=== PATIENT | male | born 1955 | race Caucasian/White ===

== ENCOUNTER 2018-12-06 22:50 | Inpatient (IN) | payer MEDICARE, OTHER ==
[2018-12-06] MEDS ORDERED: ASPIRIN 325 MG TABLET PO ONE (23:17)
[2018-12-06] MEDS ORDERED: METOPROLOL TARTRATE 5 MG/5 ML VIAL IVPUSH ONE (23:17)
[2018-12-06] MEDS ORDERED: ASPIRIN 325 MG TABLET ONE (23:22)
[2018-12-06] MEDS ORDERED: METOPROLOL TARTRATE 5 MG/5 ML VIAL ONE (23:23)
[2018-12-06 23:31] LABS: BASO % 0.5 % (0-2.0); EOS % 0.8 % (0-4.5); HEMATOCRIT 42.5 % (35.4-49); HEMOGLOBIN 14.9 GM/dL (11.7-16.9); LYMPH % 16.9 % (8-40); MCH 31.3 pg (25.7-33.7); MCHC 34.9 g/dl (32.0-35.9); MEAN CELL VOLUME 89.5 fl (80-96); MEAN PLT VOLUME 8.6 fl (7.5-11.1); NEUT % 75.8 % (42.8-82.8); PLATELET COUNT 256 K/MM3 (134-434); RBC 4.75 M/mm3 (4.00-5.60); RDW 14.8 % (11.9-15.9); WHITE BLOOD COUNT 13.8 K/mm3 (4.0-10.0)
[2018-12-06] MEDS ORDERED: dilTIAZem HCL 125 MG/25 ML - 25 ML VIAL ONE (23:37)
--- NOTE | 2018-12-06 23:37 | PDOC ---
History of Present Illness - General Chief Complaint: Chest Pain Stated Complaint: CHEST PAIN Time Seen by Provider: 12/06/18 23:17 - History of Present Illness Initial Comments: The pt is a 63M w/ a history of HTN, a-fib (coumadin), CAD s/p CABG x4, s/p AICD /PM who presents for evaluation of one hour of chest pain, SOB, MARI, malaise. 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 The pt reports feeling similar symptoms in the past which was related to a dysrhythmia requiring electric cardioversion. Pt states that his defibrillator has not discharged, but wishes it would. Reports it is programmed to override tachy-arrhythmias Endorses nausea Denies vomiting, abdominal pain, diarrhea, fevers, recent illness, or changes in sensation PCP: Dr. Ping Smallwood 12/06/18 23:37 Past History - Past Medical History Allergies/Adverse Reactions: Allergies Allergy/AdvReac Type Severity Reaction Status Date / Time No Known Allergies Allergy Verified 12/06/18 23:59 Home Medications: Ambulatory Orders Atorvastatin Ca [Lipitor] 40 mg PO HS 09/21/12 Carvedilol [Coreg] 25 mg PO BID 01/01/13 Furosemide 40 mg PO DAILY PRN 12/07/18 Oxycodone HCl/Acetaminophen [Percocet 10-325 mg Tablet] 1 each PO BID 12/07/18 Spironolactone 12.5 mg PO DAILY 12/07/18 metFORMIN HCL [Metformin HCl] 500 mg PO BID 12/07/18 oxyCODONE SR [Oxycontin] 20 mg PO BID 12/07/18 Amiodarone HCl [Cordarone -] 400 mg PO DAILY tablet 12/09/18 Enoxaparin [Lovenox -] 80 mg SQ BID disp.syrin 12/09/18 Nicotine Patch [Nicoderm Patch -] 21 mg TD DAILY patch 12/09/18 Sacubitril/Valsartan [Entresto 49 mg-51 mg Tablet] 1 tab PO BID tablet Warfarin Na [Coumadin -] 2 mg PO SuMoWeFrSa@1800 tablet 12/09/18 Warfarin Na [Coumadin -] 4 mg PO TuTh@1800 #0 tablet 12/09/18 Cardiac Disorders: Yes (BYPASS, DEFIB-PACE MAKER) Diabetes: Yes HTN: Yes - Surgical History Cardiac Surgery: Yes (defib, BYPASS) - Immunization History Td Vaccination: No TDAP Vaccination: No Immunization Up to Date: No - Suicide/Smoking/Psychosocial Hx Smoking Status: No Smoking History: Unknown if ever smoked Years of Tobacco Use: 0 Number of Cigarettes Smoked Daily: 0 Cigars Per Day: 0 Drug/Substance Use Hx: No Substance Use Type: None Review of Systems - Review of Systems Able to Perform ROS?: Yes Comments:: GENERAL/CONSTITUTIONAL: No fever or chills. HEAD, EYES, EARS, NOSE AND THROAT: No change in vision or hearing. No sore throat CARDIOVASCULAR: +chest pain and SOB RESPIRATORY: Denies cough, hemoptysis GASTROINTESTINAL: No vomiting, diarrhea or constipation GENITOURINARY: No dysuria, frequency, or change in urination MUSCULOSKELETAL: No joint or muscle swelling or pain. No neck or back pain SKIN: No rash NEUROLOGIC: No vertigo, loss of consciousness, or change in strength/sensation ENDOCRINE: No increased thirst. No abnormal weight change HEMATOLOGIC/LYMPHATIC: No anemia, easy bleeding, or history of blood clots ALLERGIC/IMMUNOLOGIC: No hives or skin allergy Is the patient limited Sami proficient: No *Physical Exam - Vital Signs Last Vital Signs Temp Pulse Resp BP Pulse Ox 98.2 F 147 H 20 143/87 100 12/06/18 22:59 12/06/18 22:59 12/06/18 22:59 12/06/18 22:59 12/06/18 22:59 - Physical Exam Comments: GENERAL: Awake, alert, and oriented to person/place/time, in moderate distress HEAD: No signs of trauma, normocephalic, atraumatic EYES: PERRLA, EOMI, sclera anicteric, conjunctiva clear ENT: Hearing grossly normal, nares patent, oropharynx clear without exudates. Moist mucosa LUNGS: Tachypnic, clear to auscultation bilaterally HEART: Tachycardic w/ regular rhythm, normal S1 and S2, no murmurs appreciated, peripheral pulses normal and equal bilaterally ABDOMEN: Soft, nontender, normoactive bowel sounds. No guarding, no rebound EXTREMITIES: Normal inspection, Normal range of motion, no edema NEUROLOGICAL: Cranial nerves II through XII grossly intact. Normal speech, no focal sensorimotor deficits SKIN: Warm, diaphoretic Moderate Sedation - Procedure Monitoring Vital Signs: Procedure Monitoring Vital Signs Temperature 98.2 F 12/06/18 22:59 Pulse Rate 147 H 12/06/18 22:59 Respiratory Rate 20 12/06/18 22:59 Blood Pressure 143/87 12/06/18 22:59 O2 Sat by Pulse Oximetry (%) 100 12/06/18 22:59 ED Treatment Course - LABORATORY CBC & Chemistry Diagram: 12/08/18 06:00 12/09/18 05:30 - Medications Given in the ED: ED Medications Discontinued Medications Generic Name Dose Route Start Last Admin Trade Name Paul PRN Reason Stop Dose Admin Aspirin 325 mg 12/06/18 23:17 12/06/18 23:28 Asa - PO 12/06/18 23:18 325 mg ONCE ONE Administration Metoprolol Tartrate 5 mg 12/06/18 23:17 12/06/18 23:28 Lopressor Injection - IVPUSH 12/06/18 23:18 5 mg ONCE ONE Administration Medical Decision Making - Medical Decision Making The pt is a 63M w/ a history of AVR, a-fib, HTN who presents for evaluation of chest pain, SOB and was found to be in wide-complex tachycardia Pt given Metoprolol 5mg IVP x1 w/o resolution of arrhythmia Pt started on Cardizem gtt at 5 which was then increased to 10 w/ subsequent resolution of tachy-arrhythmia Initial trop I neg Pt converted to a-fib Case discussed w/ pt's Advertising Rep, Dr. Barbosa ([phone]) 12/07/18 00:13 Pt weaned off of Cardizem gtt, BP and HR improved Pt feels improved No MIGUEL Lytes wnl LFTs wnl BNP elevated Plan for admission Pt discussed w/ Dr. Hardin who accepted for admission [employer] called to come interrogate device *DC/Admit/Observation/Transfer Diagnosis at time of Disposition: Wide-complex tachycardia, Atrial fibrillation, persistent Hypertension Qualifiers: Hypertension type: unspecified Qualified Code(s): I10 - Essential (primary) hypertension - Discharge Dispostion Condition at time of disposition: Good Decision to Admit order: Yes - Referrals - Patient Instructions - Post Discharge Activity
[2018-12-06] MEDS ORDERED: morphine CARPU-JECT 4 MG/1 ML DISP.SYRIN IVPUSH ONE (23:44)
[2018-12-06] MEDS ORDERED: DILTIAZEM INJECTION 125 MG in SODIUM CHLORIDE 100 ML IVPB SCH (23:45)
[2018-12-06] MEDS ORDERED: morphine SULFATE 4 MG/ML VIAL ONE (23:48)
[2018-12-06 23:55] LABS: ALBUMIN 4.3 g/dl (3.4-5.0); ALK PHOS 106 U/L (45-117); ANION GAP 5 MMOL/L (8-16); BILIRUBIN,TOTAL 0.9 mg/dL (0.2-1); BLOOD UREA NITROGEN 15 mg/dL (7-18); CALCIUM 9.6 mg/dL (8.5-10.1); CHLORIDE 103 mmol/L (98-107); CO2 27 mmol/L (21-32); CREATININE 1.2 mg/dL (0.55-1.3); GLUCOSE,RANDOM 186 mg/dL (74-106); N-TERMINAL BNP 1740.9 pg/ml (5-125); POTASSIUM 4.5 mmol/L (3.5-5.1); SGOT/AST 18 U/L (15-37); SGPT/ALT 26 U/L (13-61); SODIUM 135 mmol/L (136-145); TOT PROT 8.2 g/dl (6.4-8.2)
--- NOTE | 2018-12-07 | PDOC ---
Attending Attestation - Resident Resident Name: Rory Jacques - ED Attending Attestation I have performed the following: I have examined & evaluated the patient, The case was reviewed & discussed with the resident, I agree w/resident's findings & plan, Exceptions are as noted - HPI HPI: 12/07/18 00:12 The patient is a 63 year old male, with a significant PMH of hypertension, hyperlipidemia, atrial fibrillation on coumadin, CAD s/p quadruple bypass, AICD/ PM who presents to the emergency department with worsening shortness of breath and palpitations beginning 1 hour prior to arrival. The patient states he feels like his heart is in his head. The patient also endorses chest pain and malaise. The patient states he has not felt his defibrillator go off prior to arrival but he wishes it would. The patient states he follows with deployment technician Dr Barbosa who he visited twice last week for similar sxs. Per telephone conversation with Dr. Barbosa, the patient had his pacemaker interrogated last week which showed 7 runs of nonsustained V-tach but his pacemaker was successfully antitachycardia pacing. He reports increasing the patients carvedilol dose, but the patient was not tolerating it due to lightheadness so he advised the patient to take extra doses of Amiodarone yesterday. Pt denies fevers, chills, abd pain, N/V, focal weakness/numbness. Denies LE edema, calf ttp, recent travel. Allergies: NKA Color Checker: Dr Barbosa - Physicial Exam PE: 12/07/18 00:26 GENERAL: Awake, alert, and fully oriented, appears uncomfortable EYES: PERRLA, EOMI, sclera anicteric, conjunctiva clear ENT: Oropharynx clear without exudates. Moist mucosa NECK: Normal ROM, supple, no lymphadenopathy, JVD, or masses LUNGS: Breath sounds equal, clear to auscultation bilaterally. No wheezes, and no crackles HEART: Tachycardic to 150, normal S1 and S2, no murmurs, rubs or gallops. AICD palpable in left upper chest wall ABDOMEN: Soft, nontender, normoactive bowel sounds. No masses EXTREMITIES: Normal range of motion, no edema. No cords, erythema, or tenderness NEUROLOGICAL: Normal speech, cranial nerves intact, equal strength and sensation SKIN: Warm, Dry, normal turgor, no rashes or lesions noted. - Medical Decision Making 12/06/18 23:40 63yo M hx arrhythmia s/p AICD/PPM, coronary bypass presents to the ED with CP, SOB, found to be in wide complex tachycardia at rate of 145-150. EKG with either Afib/flutter with abherrancy vs slow Vtach BP 120/80 Given pt on BB at home and amiodarone, gave pt metoprolol 5mg with no response Pt started on dilt gtt 5mg/hr 12/06/18 23:50 Remains wide complex tachycardia, rate 150 Dilt gtt increased to 10mg/hr 12/06/18 23:59 Now in Afib, narrow complex rate 70s Rpt EKG with Afib, some conduction delay Initial wide complex tachycardia likely slow VTach 12/07/18 00:22 Labs unremarkable Mg added on Case discussed with Dr. Hardin, pt accepted for admission Dr. Hardin at the bedside
[2018-12-07 00:03] LABS: INR 1.67 (0.83-1.09); PROTHROMBIN TIME (PATIENT) 19.8 SEC (9.7-13.0)
[2018-12-07 00:06] LABS: ACTIVATED PTT 35.2 SECONDS (25.2-36.5)
[2018-12-07 00:56] LABS: MAGNESIUM 1.9 mg/dL (1.8-2.4)
[2018-12-07] MEDS: NICOTINE 14 MG/24 HOURS TOPICAL PATCH TD SCH ×2 (04:16→11:06)
[2018-12-07] MEDS: oxyCODONE HCL 20 MG SUSTAINED ACTING TABLET PO SCH ×3 (04:16→22:20)
[2018-12-07 04:45] VITALS: BMI 24.5
--- NOTE | 2018-12-07 05:45 | PN ---
Teaching Attending Note Name of Resident: Sterling Almanza ATTENDING PHYSICIAN STATEMENT I saw and evaluated the patient. I reviewed the resident's note and discussed the case with the resident. I agree with the resident's findings and plan as documented. SUBJECTIVE: OBJECTIVE: ASSESSMENT AND PLAN:
--- NOTE | 2018-12-07 05:52 | HP ---
Admitting History and Physical - Admission Chief Complaint: light headed and chest discomfort History of Present Illness: this is a 63 y./o male patient with hx of CAD s/p quadruple CABG, stent, HFrEF with dual lead ICD (medtronic), HTN, DL and atrial fibrillation presented after the patient felt that his heart was racing, he became short of breath and had mild chest discomfort. According to the patient he was recently at his wash operator whom he recommended to have his carvediolol increased to 25mg, increased the dose of amiodarone. patient has not been shocked by this device however he was shocked with the older device prior to 2014, he denied any LOC. History Source: Patient, Family Member - Smoking History Smoking history: Unknown if ever smoked Aproximately how many cigarettes per day: 0 Home Medications - Allergies Allergies/Adverse Reactions: Allergies Allergy/AdvReac Type Severity Reaction Status Date / Time No Known Allergies Allergy Verified 12/06/18 23:59 - Home Medications Home Medications: Ambulatory Orders Amiodarone HCl [CORDARONE] 200 mg PO DAILY 09/21/12 Atorvastatin Ca [Lipitor (Restricted To Cardiology)] 40 mg PO HS 09/21/12 Carvedilol [Coreg] 25 mg PO BID 01/01/13 Furosemide 40 mg PO DAILY PRN 12/07/18 Losartan Potassium 100 mg PO DAILY 12/07/18 Oxycodone HCl/Acetaminophen [Percocet 10-325 mg Tablet] 1 each PO BID 12/07/18 Spironolactone 12.5 mg PO DAILY 12/07/18 Warfarin Na [Coumadin] 2 mg PO UTDICT 12/07/18 Warfarin Sodium 4 mg PO UTDICT 12/07/18 metFORMIN HCL [Metformin HCl] 500 mg PO BID 12/07/18 oxyCODONE SR [Oxycontin] 20 mg PO BID 12/07/18 Review of Systems - Review of Systems Constitutional: reports: No Symptoms Eyes: reports: No Symptoms HENT: reports: No Symptoms Neck: reports: No Symptoms Cardiovascular: reports: Shortness of Breath Respiratory: reports: No Symptoms Physical Examination Vital Signs: Vital Signs Temperature 97.6 F 12/07/18 03:00 Pulse Rate 58 L 12/07/18 03:00 Respiratory Rate 20 12/07/18 03:00 Blood Pressure 129/65 12/07/18 03:00 O2 Sat by Pulse Oximetry (%) 98 12/07/18 03:00 Constitutional: Yes: Well Nourished, No Distress, Calm Eyes: Yes: WNL, Conjunctiva Clear, EOM Intact HENT: Yes: WNL, Atraumatic, Normocephalic Neck: Yes: WNL, Supple, Trachea Midline Cardiovascular: Yes: WNL, Regular Rate and Rhythm, S1, S2 Respiratory: Yes: WNL, Regular, CTA Bilaterally Gastrointestinal: Yes: WNL, Normal Bowel Sounds, Soft Musculoskeletal: Yes: WNL, Muscle Weakness Extremities: Yes: WNL Edema: No Integumentary: Yes: WNL Labs: CBC, BMP 12/06/18 23:03 12/06/18 23:03 Imaging - Results Chest X-ray: Image Reviewed X-ray: Image Reviewed EKG: Image Reviewed Problem List - Problems (1) Atrial fibrillation, persistent Code(s): I48.1 - PERSISTENT ATRIAL FIBRILLATION (2) Persistent atrial fibrillation with RVR Assessment/Plan: rate controlled c/w warfarin repeat INR c/w carvidilol 25m twice a day c/w amiodarone 200mg tele monitor Code(s): I48.1 - PERSISTENT ATRIAL FIBRILLATION (3) HTN (hypertension), benign Assessment/Plan: c/w home medication Code(s): I10 - ESSENTIAL (PRIMARY) HYPERTENSION (4) Dyslipidemia (high LDL; low HDL) Assessment/Plan: c/w statin Code(s): E78.5 - HYPERLIPIDEMIA, UNSPECIFIED (5) Wide-complex tachycardia Assessment/Plan: patient presented to the hospital with wide complext tachycardia, terminated with diltiazem possible aberrant conduction atrial fibrillation with RVR vs VT based on the patient history plan: admit to TELE c/w carvidilol c/w amiodarone cardiology consult echocardiogram device interrogation - [employer] was notified Code(s): I47.2 - VENTRICULAR TACHYCARDIA (6) Diabetes type 2, controlled Assessment/Plan: insulin sliding scale diabetic diet hold metformin Code(s): E11.9 - TYPE 2 DIABETES MELLITUS WITHOUT COMPLICATIONS Qualifiers: Diabetes mellitus cloth napping supervisor insulin use: without cloth napping supervisor use Diabetes mellitus complication status: with circulatory complication
[2018-12-07] MEDS ORDERED: FUROSEMIDE 40 MG TABLET (FP) PO PRN (06:03)
[2018-12-07] MEDS: INSULIN SLIDING SCALE (NOVOLOG) 1 VIAL SQ SCH ×2 (06:52→17:48)
[2018-12-07] MEDS ORDERED: FLU VACCINE QUAD 60 MCG/0.5 ML (MDV 18-19) IM ONE (09:00)
[2018-12-07] MEDS ORDERED: LOSARTAN POTASSIUM 50 MG TABLET (FP) PO SCH (10:00)
[2018-12-07] MEDS ORDERED: AMIODARONE HCL 200 MG TABLET (FP) PO SCH (10:00)
[2018-12-07] MEDS: SPIRONOLACTONE 25 MG TABLET (FP) PO SCH (11:01)
[2018-12-07] MEDS: CARVEDILOL 25 MG TABLET (FP) PO SCH ×2 (11:02→22:21)
[2018-12-07] MEDS: AMIODARONE HCL 200 MG TABLET (FP) PO SCH (11:04)
--- NOTE | 2018-12-07 14:02 | HOSP ---
Subjective - Review of Symptoms Subjective: c/o B/L knee pain which is his chronic pain which he takes percocet. states his symtpoms of palpitations assoc with dizzyness and CP has resolved. denies CP, SOB, fever, chills, N/V/C?D Current Medications Generic Name Dose Route Start Last Admin Trade Name Freq PRN Reason Stop Dose Admin Amiodarone HCl 400 mg 12/07/18 10:35 12/07/18 11:04 Cordarone - PO 400 mg DAILY [facility] Administration Atorvastatin Calcium 40 mg 12/07/18 22:00 Lipitor - PO [facility] Carvedilol 25 mg 12/07/18 10:00 12/07/18 11:02 Coreg - PO 25 mg BID [facility] Administration Furosemide 40 mg 12/07/18 06:03 Lasix - PO DAILY PRN edema Insulin Aspart 1 vial 12/07/18 07:00 12/07/18 06:52 Novolog Vial Sliding Scale - SQ Not Given TIDAC [facility] Protocol Losartan Potassium 100 mg 12/07/18 10:00 12/07/18 11:02 Cozaar - PO 100 mg DAILY [facility] Administration Nicotine 14 mg 12/07/18 04:15 12/07/18 11:06 Nicoderm Patch - TD 14 mg DAILY [facility] Administration Oxycodone HCl 20 mg 12/07/18 04:15 12/07/18 10:58 Oxycontin - PO 20 mg BID [facility] Administration Spironolactone 12.5 mg 12/07/18 10:00 12/07/18 11:01 Aldactone - PO 12.5 mg DAILY [facility] Administration Warfarin Sodium 4 mg 12/10/18 18:00 Coumadin - PO TuTh@1800 [facility] Warfarin Sodium 2 mg 12/07/18 18:00 Coumadin - PO SuMoWeFrSa@1800 [facility] Last Vital Signs Temp Pulse Resp BP Pulse Ox 97.4 F L 56 L 18 124/67 94 L 12/07/18 06:05 12/07/18 10:00 12/07/18 10:00 12/07/18 10:00 12/07/18 09:00 General NAD CV S1 S2 RRR no murmur/rub/gallop Lungs CTA B/L no wheezing/rales/rhonchi Abdomen soft NT/ND CBCD WBC 13.8 K/mm3 (4.0-10.0) H 12/06/18 23:03 RBC 4.75 M/mm3 (4.00-5.60) 12/06/18 23:03 Hgb 14.9 GM/dL (11.7-16.9) 12/06/18 23:03 Hct 42.5 % (35.4-49) 12/06/18 23:03 MCV 89.5 fl (80-96) 12/06/18 23:03 MCHC 34.9 g/dl (32.0-35.9) 12/06/18 23:03 RDW 14.8 % (11.9-15.9) D 12/06/18 23:03 Plt Count 256 K/MM3 (134-434) D 12/06/18 23:03 MPV 8.6 fl (7.5-11.1) D 12/06/18 23:03 CMP Sodium 135 mmol/L (136-145) L 12/06/18 23:03 Potassium 4.5 mmol/L (3.5-5.1) 12/06/18 23:03 Chloride 103 mmol/L (98-107) 12/06/18 23:03 Carbon Dioxide 27 mmol/L (21-32) 12/06/18 23:03 Anion Gap 5 MMOL/L (8-16) L 12/06/18 23:03 BUN 15 mg/dL (7-18) 12/06/18 23:03 Creatinine 1.2 mg/dL (0.55-1.3) 12/06/18 23:03 Creat Clearance w eGFR 61.15 (>60) 12/06/18 23:03 Calcium 9.6 mg/dL (8.5-10.1) 12/06/18 23:03 Total Bilirubin 0.9 mg/dL (0.2-1) 12/06/18 23:03 AST 18 U/L (15-37) 12/06/18 23:03 ALT 26 U/L (13-61) 12/06/18 23:03 Alkaline Phosphatase 106 U/L (45-117) 12/06/18 23:03 Total Protein 8.2 g/dl (6.4-8.2) 12/06/18 23:03 Albumin 4.3 g/dl (3.4-5.0) 12/06/18 23:03 Assessment and Plan 63yo M with PMH CAD s/p CABG, Vtac s/p ICD placement, HTN and Afib on eliquis presented to the ER with palpitations 1. Palpitaitons- ICD interrogated showing multiple episodes of Vtach which were re-paced not requiring shock. his home medications were recently adjusted by dial buffer but then decreased as patient was unable to tolerate (dizzyness). spoke with cardiology and pt will likely require EP study, he will reach out to his dial buffer (Dr Barbosa) on sunday to determine next step. will cont current dosing of medications at this time. cardiac monitoring. maintain electrolytes K >4.5 and Mg >2.5 2. Tropinemia- due to vtach. flat trend. no intervention at this time. cardio on board. pt had recent echo last week done by dial buffer. no recent stress test 3. Subtherapeutic INR- was recently supratherapeutic and was told to hold it for 2 days ( and sun). will start full dose lovenox at this time and bridge with coumadin. d/w pt about NOAC options. will d/w dial buffer in future 4. leukocytosis- liekly reactive due to stress. no signs of infection. no indication for abx 5. Chronic knee pain- will re-start chronic medications. oxy 20mg BID and percocet 10mg/650mg BID prn 6. AFib- cont rate control. on coumadin 7. HTN- controlled 8. DVT ppx- full dose lovenox Istop Reference #: [id number] Physical Examination Vital Signs: Vital Signs Temperature 97.4 F L 12/07/18 06:05 Pulse Rate 56 L 12/07/18 10:00 Respiratory Rate 18 12/07/18 10:00 Blood Pressure 124/67 12/07/18 10:00 O2 Sat by Pulse Oximetry (%) 94 L 12/07/18 09:00 Labs: CBC, BMP 12/06/18 23:03 12/06/18 23:03
--- NOTE | 2018-12-07 14:23 | PN ---
Progress Note (short form) - Note Progress Note: Chief Complaint: Events noted, notes reviewed, dizziness and near syncopal episodes, chest pain syndrome History of Present Illness: Seen and examined on telemetry. Full consult dictated Home Medications Medication Instructions Recorded Amiodarone HCl [CORDARONE] 200 mg PO DAILY 09/21/12 Atorvastatin Ca [Lipitor 40 mg PO HS 09/21/12 (Restricted To Cardiology)] Carvedilol [Coreg] 25 mg PO BID 01/01/13 Furosemide 40 mg PO DAILY PRN 12/07/18 Losartan Potassium 100 mg PO DAILY 12/07/18 Oxycodone HCl/Acetaminophen 1 each PO BID 12/07/18 [Percocet 10-325 mg Tablet] Spironolactone 12.5 mg PO DAILY 12/07/18 Warfarin Na [Coumadin] 2 mg PO UTDICT 12/07/18 Warfarin Sodium 4 mg PO UTDICT 12/07/18 metFORMIN HCL [Metformin HCl] 500 mg PO BID 12/07/18 oxyCODONE SR [Oxycontin] 20 mg PO BID 12/07/18 Medications: Current Medications Amiodarone HCl (Cordarone -) 400 mg PO DAILY [facility] Last Admin: 12/07/18 11:04 Dose: 400 mg Atorvastatin Calcium (Lipitor -) 40 mg PO HS [facility] Carvedilol (Coreg -) 25 mg PO BID [facility] Last Admin: 12/07/18 11:02 Dose: 25 mg Enoxaparin Sodium (Lovenox -) 80 mg SQ BID [facility] Furosemide (Lasix -) 40 mg PO DAILY PRN PRN Reason: edema Insulin Aspart (Novolog Vial Sliding Scale -) 1 vial SQ TIDAC [facility]; Protocol Last Admin: 12/07/18 06:52 Dose: Not Given Losartan Potassium (Cozaar -) 100 mg PO DAILY [facility] Last Admin: 12/07/18 11:02 Dose: 100 mg Nicotine (Nicoderm Patch -) 14 mg TD DAILY [facility] Last Admin: 12/07/18 11:06 Dose: 14 mg Oxycodone HCl (Oxycontin -) 20 mg PO BID [facility] Last Admin: 12/07/18 10:58 Dose: 20 mg Oxycodone/Acetaminophen (Percocet 5/325 -) 2 combo PO Q12H PRN PRN Reason: PAIN LEVEL 7 - 10 Spironolactone (Aldactone -) 12.5 mg PO DAILY [facility] Last Admin: 12/07/18 11:01 Dose: 12.5 mg Warfarin Sodium (Coumadin -) 4 mg PO TuTh@1800 [facility] Warfarin Sodium (Coumadin -) 2 mg PO SuMoWeFrSa@1800 [facility] Zolpidem Tartrate (Ambien -) 10 mg PO HS PRN PRN Reason: INSOMNIA Review of Systems Cardiovascular: As noted above Respiratory: denies: Cough or Sputum Production Gastrointestinal: denies: Nausea, Vomiting, Diarrhea, Constipation or Abdominal Pain Musculoskeletal: No Symptoms Reported Endocrine: No Symptoms Reported Vital Signs: Last Vital Signs Temp Pulse Resp BP Pulse Ox 97.4 F L 56 L 18 124/67 94 L 12/07/18 06:05 12/07/18 10:00 12/07/18 10:00 12/07/18 10:00 12/07/18 09:00 Intake & Output 12/04/18 12/05/18 12/06/18 12/07/18 23:59 23:59 23:59 23:59 Intake Total 10 Balance 10 Weight 175 lb 176 lb 6.4 oz Neck: Supple Negative JVD no bruit appreciated Respiratory: Clear to A&P Bilaterally Cardiovascular: S1 S2 Irregularly Irregular Gastrointestinal: Soft Benign Normal Bowel Sounds Ext: Negative Edema Labs: Troponin, BNP 12/06/18 12/07/18 23:03 01:46 Troponin I 0.04 0.19 H B-Natriuretic Peptide 1740.9 H CBC, BMP 12/06/18 23:03 12/06/18 23:03 Hepatic Panel Total Bilirubin 0.9 mg/dL (0.2-1) 12/06/18 23:03 AST 18 U/L (15-37) 12/06/18 23:03 ALT 26 U/L (13-61) 12/06/18 23:03 Alkaline Phosphatase 106 U/L (45-117) 12/06/18 23:03 Albumin 4.3 g/dl (3.4-5.0) 12/06/18 23:03 INR, PTT INR 1.67 (0.83-1.09) H 12/06/18 23:03 Assessment/Plan ASSESSMENT: 1. Recurrent dizziness and near syncopal episodes related to recurrent sustained arrhythmia/ventricular tachycardia, post ATP therapy/evident on device interrogation 2. Ischemic dilated cardiomyopathy with chronic class I-II NYHA classification LV failure post prophylactic ICD implant, compensated/euvolemic 3. Chest pain syndrome/CAD post MS/CABG with evidence of demand ishemic injury angina pectoris 4. Persistent atrial fibrillation [id number] score 4 on A/C 5. HTN 6. DM 7. Hypercholesterolemia 8. PAD 9. CKD 10. Tobacco abuse PLAN: 1. Continue Coreg/titrate dosage to 25 mg twice daily 2. Recommend Entresto in replacement for Cozaar 3. Continue Amiodarone at 400 mg daily 4. Continue diuretics/Lasix/Aldactone 5. Continue A/C with Coumadin but preferably consider DOAC's 6. Additional evaluation including R&LHC coronary angiography and EP study/with VT ablation/ to be discussed with patient's primary website/blog editor Dr. Vivienne Barbosa 7. Counselled smoking cessation and abstinence Above was discussed in detail with the patient Edgardo Guerra M.D.
[2018-12-07 15:41] LABS: BASO % 0.5 % (0-2.0); EOS % 1.7 % (0-4.5); HEMATOCRIT 36.4 % (35.4-49); LYMPH % 33.6 % (8-40); MCH 31.7 pg (25.7-33.7); MCHC 35.8 g/dl (32.0-35.9); MEAN CELL VOLUME 88.6 fl (80-96); NEUT % 57.2 % (42.8-82.8); PLATELET COUNT 158 K/MM3 (134-434); RDW 14.7 % (11.9-15.9); WHITE BLOOD COUNT 6.9 K/mm3 (4.0-10.0)
[2018-12-07 16:06] LABS: ANION GAP 8 MMOL/L (8-16); BLOOD UREA NITROGEN 19 mg/dL (7-18); CALCIUM 8.7 mg/dL (8.5-10.1); CHLORIDE 104 mmol/L (98-107); CO2 26 mmol/L (21-32); GLUCOSE,RANDOM 155 mg/dL (74-106); POTASSIUM 3.6 mmol/L (3.5-5.1); SODIUM 138 mmol/L (136-145)
--- NOTE | 2018-12-07 16:16 | CONS ---
DATE OF CONSULTATION: 12/07/2018 Consultation requested by hospitalist service. CHIEF COMPLAINT: Near-syncope, chest discomfort, cardiovascular evaluation. HISTORY OF PRESENT ILLNESS: A 63-year-old, male with known history of coronary artery disease, post myocardial infarction, post coronary artery bypass grafting, angina pectoris, systolic left ventricular dysfunction related to dilated ischemic cardiomyopathy, post-prophylactic ICD implantation, hypertensive cardiovascular disease, diabetes mellitus, hypercholesterolemia, peripheral vascular disease, who presented to [facility] with recurrent episodes of dizziness, near-syncope, and in addition chest discomfort. Patient was recently evaluated by his primary non categorical preschool teacher, Dr. Dallin Barbosa; at which point, patient was noted to have evidence of ventricular tachycardia, in view of which patient's amiodarone therapy was adjusted/dose increased. Patient in addition to above has a history of persistent atrial fibrillation and he is currently on anticoagulation therapy with Coumadin. Patient in addition reported chest discomfort described as heaviness which subsided subsequent to arrival to the emergency room. Patient reported dyspnea with [id number] physical exertion. Patient denied any orthopnea or paroxysmal nocturnal dyspnea. Patient reports intermittent bilateral lower extremity edema that worsens in the latter part of the day. Patient denied any loss of consciousness. Patient has been reporting progressive fatigue and tiredness. Device interrogation was performed which revealed evidence of recurrent, wide-complex tachycardia requiring [id number] therapy. PAST MEDICAL HISTORY: Coronary artery disease, post myocardial infarction, post coronary artery bypass grafting, angina pectoris, systolic left ventricular dysfunction related to ischemic dilated cardiomyopathy with chronic class I [place] Heart Association classification left ventricular failure, persistent atrial fibrillation on anticoagulation therapy CHADS-Vasc score of 4, hypertensive cardiovascular disease, diabetes mellitus, hypercholesterolemia, peripheral vascular disease. SOCIAL HISTORY: Smoker. FAMILY HISTORY: Positive coronary artery disease. ALLERGIES: None reported. MEDICAL THERAPY: At home included amiodarone 200 mg once a day, Lipitor 40 mg once a day, Coreg 25 mg twice a day, Lasix 40 mg once a day, Cozaar 100 mg once a day, oxycodone-acetaminophen 10 per 325-mg tablet 1 tablet twice a day, Aldactone 12.5 mg once a day, Coumadin, metformin 500 mg twice a day, OxyContin 20 mg twice daily. REVIEW OF SYSTEMS: Head and Neck: Denies headache, photophobia, blurring of vision. Respiratory: No cough or sputum production. Cardiovascular: As noted above. Gastrointestinal: Denies nausea, vomiting, diarrhea, abdominal discomfort. Genitourinary: No symptoms reported. PHYSICAL EXAMINATION: Vital Signs: Blood pressure 124/67 mmHg, pulse rate is 56 beats per minute, temperature 97.4. Head and Neck: Pupils equal, reactive to light and accommodation. External ocular muscles are intact. Anicteric sclerae. Negative JVD. No bruit appreciated. Chest: Clear to auscultation, percussion. Cardiovascular: S1, S2, irregularly irregular. Grade 1 over 6 systolic apical murmur. No clicks or gallops. Abdomen: Soft. Benign. Normoactive bowel sounds. Extremities: Chronic venous stasis changes were noted. Trace edema. Decreased distal pulses. Electrocardiogram was noted; atrial fibrillation with intermittent ventricular pacing. CBC revealed white cell count 13.8, hemoglobin 14.9, platelet count 256, INR 1.67, sodium 135, potassium 4.5, BUN 15, creatinine 1.2, estimated GFR 61.15, glucose 186, troponin 0.19, BNP 1740 with normal liver profile. ASSESSMENT: 1. Recurrent dizziness and near-syncopal episodes related to recurrent, sustained ventricular arrhythmia/ventricular tachycardia post ATP therapy evident on device interrogation. 2. Ischemic dilated cardiomyopathy with chronic class 1-2 [place] Heart [employer] classification left ventricular failure, post-prophylactic implantable cardioverter-defibrillator compensated/euvolemic. 3. Chest pain syndrome, coronary artery disease, post-myocardial infarction, post coronary artery bypass grafting with evidence of demand ischemic injury, angina pectoris. 4. Persistent atrial fibrillation, CHADS-Vasc score of 4, on anticoagulation therapy. 5. Hypertension. 6. Diabetes mellitus. 7. Hypercholesterolemia. 8. Peripheral vascular disease. 9. Chronic kidney disease. 10. Tobacco abuse. RECOMMENDATIONS: 1. Continuation of Coreg at 25 mg twice daily. 2. Recommend initiation of Entresto therapy in replacement for Cozaar related to outcome data. 3. Continuation of amiodarone therapy at 400 mg once daily. 4. Continuation with diuretic therapy Lasix and Aldactone with caution and close monitoring of renal function. 5. Continuation of anticoagulation with Coumadin, but preferably consider DOACs (direct oral anticoagulant therapies). 6. Additional evaluation, including right and left heart cardiac catheterization, coronary angiography, and EP study with VT ablation to be discussed with the patient's primary non categorical preschool teacher, Dr. Dallin Barbosa. 7. Patient was strongly counseled smoking cessation and abstinence. Above was discussed in detail with the patient. Thank you for the kind referral. MELANIE PEÑA M.D. MARSHA/[id number]
--- NOTE | 2018-12-07 16:35 | EKG ---
Test Reason : Blood Pressure : / mmHG Vent. Rate : 069 BPM Atrial Rate : 073 BPM P-R Int : 000 ms QRS Dur : 140 ms QT Int : 500 ms P-R-T Axes : 000 -53 215 degrees QTc Int : 535 ms ATRIAL FIBRILLATION WITH OCCASIONAL ventricular-paced complexes LEFT AXIS DEVIATION NON-SPECIFIC INTRA-VENTRICULAR CONDUCTION BLOCK T WAVE ABNORMALITY, CONSIDER INFEROLATERAL ISCHEMIA ABNORMAL ECG WHEN COMPARED WITH ECG OF 26-MAR-2013 13:26, THERE ARE NOW OCCASIONAL ELECTRONIC VENTRICULAR-PACED COMPLEXES Confirmed by ZEKE KURTZ MD ([id number]) on 12/07/2018 4:34:55 PM Referred By: Confirmed By:ZEKE KURTZ MD
--- NOTE | 2018-12-07 17:01 | EKG ---
Test Reason : Blood Pressure : / mmHG Vent. Rate : 052 BPM Atrial Rate : 208 BPM P-R Int : 000 ms QRS Dur : 160 ms QT Int : 558 ms P-R-T Axes : 000 -48 209 degrees QTc Int : 518 ms Ventricular-paced rhythm ABNORMAL ECG WHEN COMPARED WITH ECG OF 06-DEC-2018 23:59, VENT. RATE HAS DECREASED BY 17 BPM Confirmed by ZEKE KURTZ MD ([id number]) on 12/07/2018 5:00:45 PM Referred By: Confirmed By:ZEKE KURTZ MD
[2018-12-07] MEDS: oxyCODONE HCL 5 MG TABLET PO PRN (17:46)
[2018-12-07 19:19] LABS: INR 1.46 (0.83-1.09); PROTHROMBIN TIME (PATIENT) 17.3 SEC (9.7-13.0)
[2018-12-07] MEDS: WARFARIN NA 2 MG TABLET (UD) PO SCH (20:13)
[2018-12-07] MEDS: ZOLPIDEM TARTRATE 5 MG TABLET PO PRN (22:21)
[2018-12-07] MEDS: ENOXAPARIN NA (PORCINE) 80 MG/0.8 ML DISP.SYRIN SQ SCH (22:21)
[2018-12-07] MEDS: SACUBITRIL/VALSARTAN 49 MG-51 MG TABLET PO SCH (22:21)
[2018-12-07] MEDS: ATORVASTATIN CA 40 MG TABLET (FP) PO SCH (22:21)
[2018-12-08] MEDS: ACETAMINOPHEN 325 MG TABLET (FP) PO PRN ×2 (06:14→19:32)
[2018-12-08] MEDS: oxyCODONE HCL 5 MG TABLET PO PRN ×2 (06:15→19:31)
[2018-12-08] MEDS: INSULIN SLIDING SCALE (NOVOLOG) 1 VIAL SQ SCH ×4 (06:39→16:56)
[2018-12-08 07:37] LABS: BASO % 0.5 % (0-2.0); EOS % 1.5 % (0-4.5); HEMATOCRIT 40.1 % (35.4-49); LYMPH % 27.5 % (8-40); MCH 30.8 pg (25.7-33.7); MCHC 34.9 g/dl (32.0-35.9); MEAN CELL VOLUME 88.5 fl (80-96); MEAN PLT VOLUME 8.4 fl (7.5-11.1); MONO % 5.3 % (3.8-10.2); NEUT % 65.2 % (42.8-82.8); PLATELET COUNT 156 K/MM3 (134-434); RBC 4.54 M/mm3 (4.00-5.60); RDW 14.9 % (11.9-15.9); WHITE BLOOD COUNT 5.8 K/mm3 (4.0-10.0)
[2018-12-08 07:39] LABS: ANION GAP 5 MMOL/L (8-16); BLOOD UREA NITROGEN 19 mg/dL (7-18); CHLORIDE 104 mmol/L (98-107); CO2 29 mmol/L (21-32); CREATININE 0.9 mg/dL (0.55-1.3); GLUCOSE,RANDOM 114 mg/dL (74-106); POTASSIUM 3.9 mmol/L (3.5-5.1); SODIUM 138 mmol/L (136-145)
[2018-12-08 08:32] LABS: INR 1.39 (0.83-1.09); PROTHROMBIN TIME (PATIENT) 16.5 SEC (9.7-13.0)
[2018-12-08] MEDS ORDERED: PT OWN MED DRAWER 7, Y5N ONE ×2 (09:18→21:06)
[2018-12-08] MEDS: AMIODARONE HCL 200 MG TABLET (FP) PO SCH (09:41)
[2018-12-08] MEDS: ENOXAPARIN NA (PORCINE) 80 MG/0.8 ML DISP.SYRIN SQ SCH ×2 (09:41→21:10)
[2018-12-08] MEDS: SPIRONOLACTONE 25 MG TABLET (FP) PO SCH (09:42)
[2018-12-08] MEDS: oxyCODONE HCL 20 MG SUSTAINED ACTING TABLET PO SCH ×2 (09:43→21:09)
[2018-12-08] MEDS: NICOTINE 14 MG/24 HOURS TOPICAL PATCH TD SCH (09:44)
[2018-12-08] MEDS: CARVEDILOL 25 MG TABLET (FP) PO SCH ×2 (09:44→21:09)
[2018-12-08] MEDS: SACUBITRIL/VALSARTAN 49 MG-51 MG TABLET PO SCH ×2 (09:45→21:12)
--- NOTE | 2018-12-08 10:55 | PN ---
Progress Note (short form) - Note Progress Note: Chief Complaint: Events noted, notes reviewed, denies any dizziness or near syncopal episodes, denies any recurrent chest pain, denies dyspnea History of Present Illness: Seen and examined on telemetry. Events noted, notes reviewed, denies any dizziness or near syncopal episodes, denies any recurrent chest pain, denies dyspnea Patient will require additional evaluation including R&LHC coronary angiography and EP study possible VT RFA, to be discussed with patient's primary hip hop performers and plan for either in-patient or out-patient procedures, discussed in detail with the patient Medications: Current Medications Acetaminophen (Tylenol -) 650 mg PO Q4H PRN PRN Reason: PAIN 7-10 Last Admin: 12/08/18 06:14 Dose: 650 mg Amiodarone HCl (Cordarone -) 400 mg PO DAILY [facility] Last Admin: 12/08/18 09:41 Dose: 400 mg Atorvastatin Calcium (Lipitor -) 40 mg PO HS [facility] Last Admin: 12/07/18 22:21 Dose: 40 mg Carvedilol (Coreg -) 25 mg PO BID [facility] Last Admin: 12/08/18 09:44 Dose: 25 mg Enoxaparin Sodium (Lovenox -) 80 mg SQ BID [facility] Last Admin: 12/08/18 09:41 Dose: 80 mg Furosemide (Lasix -) 40 mg PO DAILY PRN PRN Reason: edema Insulin Aspart (Novolog Vial Sliding Scale -) 1 vial SQ TIDAC [facility]; Protocol Last Admin: 12/08/18 09:37 Dose: Not Given Nicotine (Nicoderm Patch -) 14 mg TD DAILY [facility] Last Admin: 12/08/18 09:44 Dose: 14 mg Oxycodone HCl (Oxycontin -) 20 mg PO BID [facility] Last Admin: 12/08/18 09:43 Dose: 20 mg Oxycodone HCl (Roxicodone -) 10 mg PO Q12H PRN PRN Reason: PAIN 7-10 Last Admin: 12/08/18 06:15 Dose: 10 mg Sacubitril/Valsartan (Entresto 49 Mg-51 Mg Tablet) 1 tab PO BID [facility] Last Admin: 12/08/18 09:45 Dose: 1 tab Spironolactone (Aldactone -) 12.5 mg PO DAILY [facility] Last Admin: 12/08/18 09:42 Dose: 12.5 mg Warfarin Sodium (Coumadin -) 4 mg PO TuTh@1800 [facility] Warfarin Sodium (Coumadin -) 2 mg PO SuMoWeFrSa@1800 [facility] Last Admin: 12/07/18 20:13 Dose: 2 mg Zolpidem Tartrate (Ambien -) 10 mg PO HS PRN PRN Reason: INSOMNIA Last Admin: 12/07/18 22:21 Dose: 10 mg Review of Systems Cardiovascular: As noted above Respiratory: denies: Cough or Sputum Production Gastrointestinal: denies: Nausea, Vomiting, Diarrhea, Constipation or Abdominal Pain Musculoskeletal: No Symptoms Reported Endocrine: No Symptoms Reported Vital Signs: Last Vital Signs Temp Pulse Resp BP Pulse Ox 97.6 F 50 L 14 120/63 97 12/08/18 09:32 12/08/18 09:32 12/08/18 09:32 12/08/18 09:32 12/08/18 09:00 Intake & Output 12/05/18 12/06/18 12/07/18 12/08/18 23:59 23:59 23:59 23:59 Intake Total 520 260 Balance 520 260 Weight 175 lb 176 lb 6.4 oz Neck: Supple Negative JVD no bruit appreciated Respiratory: Clear to A&P Bilaterally Cardiovascular: S1 S2 Irregularly Irregular Gastrointestinal: Soft Benign Normal Bowel Sounds Ext: Negative Edema Labs: CBC, BMP 12/08/18 06:00 12/08/18 06:00 Hepatic Panel Total Bilirubin 0.9 mg/dL (0.2-1) 12/06/18 23:03 AST 18 U/L (15-37) 12/06/18 23:03 ALT 26 U/L (13-61) 12/06/18 23:03 Alkaline Phosphatase 106 U/L (45-117) 12/06/18 23:03 Albumin 4.3 g/dl (3.4-5.0) 12/06/18 23:03 INR, PTT INR 1.39 (0.83-1.09) H 12/08/18 06:00 Assessment/Plan ASSESSMENT: 1. Recurrent dizziness and near syncopal episodes related to recurrent sustained arrhythmia/ventricular tachycardia, post ATP therapy/evident on device interrogation on Amiodarone therapy for future EPS/RFA 2. Ischemic dilated cardiomyopathy with chronic class I-II NYHA classification LV failure post prophylactic ICD implant, compensated/euvolemic 3. Chest pain syndrome/CAD post GA/CABG with evidence of demand ishemic injury angina pectoris 4. Persistent atrial fibrillation [id number] score 4 on A/C Coumadin/Heparin 5. HTN 6. DM 7. Hypercholesterolemia 8. PAD 9. CKD 10. Tobacco abuse PLAN: 1. Continue Coreg at 25 mg twice daily 2. Continue Entresto 3. Continue Amiodarone at 400 mg daily 4. Continue diuretics-Lasix/Aldactone 5. Continue A/C with Coumadin but preferably consider DOAC's, Lovenox as a bridge 6. Additional evaluation including R&LHC coronary angiography and EP study/with VT ablation/ to be discussed with patient's primary hip hop performers Dr. Vivienne Barbosa, as outlined above 7. Counselled smoking cessation and abstinence Edgardo Guerra M.D.
--- NOTE | 2018-12-08 13:09 | PN ---
Teaching Attending Note Name of Resident: Jud Ovalles ATTENDING PHYSICIAN STATEMENT I saw and evaluated the patient. I reviewed the resident's note and discussed the case with the resident. I agree with the resident's findings and plan as documented. SUBJECTIVE:asymptomatic. denies CP, SOB, fever, chills, N/V/C/D/ OBJECTIVE: Last Vital Signs Temp Pulse Resp BP Pulse Ox 97.6 F 50 L 14 120/63 97 12/08/18 09:32 12/08/18 09:32 12/08/18 09:32 12/08/18 09:32 12/08/18 09:00 General NAD ASSESSMENT AND PLAN: 63yo M with PMH CAD s/p CABG, Vtac s/p ICD placement, HTN and Afib on eliquis presented to the ER with palpitations 1. VTach- multiple episodes on ICD that ATP were paced. will need EP study and R &L cath. plan to be transferred tomorrow. cont current management. entresto started yesterday. cardiac monitoring. maintain electrolytes K >4.5 and Mg >2.5 2. Tropinemia- due to vtach. flat trend. no intervention at this time. cardio on board. pt had recent echo last week done by life skills educator. no recent stress test 3. Apnea- apnic episodes noted on monitor overnight. does not snore at night but seems to be excessively tired during the day. can d/c with pulm referral as outpatient for polysomgraphy 4. continuous nicotine dependence- nicotine patch 5. Subtherapeutic INR- bridge lovenox-coumadin. pt to d/w cardio about NOAC options 6. leukocytosis- liekly reactive due to stress. no signs of infection. no indication for abx. resolved 7. Chronic knee pain- will re-start chronic medications. oxy 20mg BID and percocet 10mg/650mg BID prn 8. AFib- cont rate control. on coumadin 9. HTN- controlled 10. DVT ppx- full dose lovenox 11. plan to transfer tomorrow for EP study with cath
--- NOTE | 2018-12-08 14:17 | PN ---
Physical Exam: SUBJECTIVE: Patient seen and examined at bedside. On tele, with apneic episodes and PVCs. Without complaint. OBJECTIVE: Vital Signs Period Temp Pulse Resp BP Sys/Duffy Pulse Ox Last 24 Hr 97.5 F-98.9 F 50-55 14-18 102-134/57-67 95-97 GENERAL: The patient is pleasant. awake, alert, and fully oriented, in no acute distress. HEAD: Normal with no signs of trauma. EYES: PERRL, extraocular movements intact, sclera anicteric, conjunctiva clear. No ptosis. ENT: Ears normal, nares patent, oropharynx clear without exudates, moist mucous membranes. NECK: Trachea midline, full range of motion, supple. LUNGS: Breath sounds equal, clear to auscultation bilaterally, no wheezes, no crackles, no accessory muscle use. HEART: Regular rate and rhythm, S1, S2 without murmur, rub or gallop. ABDOMEN: Soft, nontender, nondistended, normoactive bowel sounds EXTREMITIES: 2+ pt pulses, warm, well-perfused, no edema. NEUROLOGICAL: Cranial nerves II through XII grossly intact. PSYCH: Normal mood, normal affect. SKIN: Warm, dry, normal turgor Laboratory Results 12/08/18 12/08/18 12/08/18 06:00 06:00 06:00 WBC 5.8 Hgb 14.0 Hct 40.1 Plt Count 156 INR 1.39 H BUN 19 H Creatinine 0.9 Random Glucose 114 H Active Medications Generic Name Dose Route Start Last Admin Trade Name Freq PRN Reason Stop Dose Admin Acetaminophen 650 mg 12/07/18 14:19 12/08/18 06:14 Tylenol - PO 650 mg Q4H PRN Administration PAIN 7-10 Amiodarone HCl 400 mg 12/07/18 10:35 12/08/18 09:41 Cordarone - PO 400 mg DAILY [facility] Administration Atorvastatin Calcium 40 mg 12/07/18 22:00 12/07/18 22:21 Lipitor - PO 40 mg HS [facility] Administration Carvedilol 25 mg 12/07/18 10:00 12/08/18 09:44 Coreg - PO 25 mg BID [facility] Administration Enoxaparin Sodium 80 mg 12/07/18 22:00 12/08/18 09:41 Lovenox - SQ 80 mg BID [facility] Administration Furosemide 40 mg 12/07/18 06:03 Lasix - PO DAILY PRN edema Insulin Aspart 1 vial 12/07/18 07:00 12/08/18 11:37 Novolog Vial Sliding Scale - SQ Not Given TIDAC [facility] Protocol Nicotine 14 mg 12/07/18 04:15 12/08/18 09:44 Nicoderm Patch - TD 14 mg DAILY [facility] Administration Oxycodone HCl 20 mg 12/07/18 04:15 12/08/18 09:43 Oxycontin - PO 20 mg BID [facility] Administration Oxycodone HCl 10 mg 12/07/18 14:19 12/08/18 06:15 Roxicodone - PO 10 mg Q12H PRN Administration PAIN 7-10 Sacubitril/Valsartan 1 tab 12/07/18 22:00 12/08/18 09:45 Entresto 49 Mg-51 Mg Tablet PO 1 tab BID [facility] Administration Spironolactone 12.5 mg 12/07/18 10:00 12/08/18 09:42 Aldactone - PO 12.5 mg DAILY [facility] Administration Warfarin Sodium 4 mg 12/10/18 18:00 Coumadin - PO TuTh@1800 [facility] Warfarin Sodium 2 mg 12/07/18 18:00 12/07/18 20:13 Coumadin - PO 2 mg SuMoWeFrSa@1800 [facility] Administration Zolpidem Tartrate 10 mg 12/07/18 22:00 12/07/18 22:21 Ambien - PO 10 mg HS PRN Administration INSOMNIA ASSESSMENT/PLAN: 63 y/o M with PMH CAD s/p CABG, VTACH s/p ICD, HTN, afib on eliquis, who presented to the ED with palpitations. #Palpitations -continues to be asymptomatic. no chest pain -d/w cardio will d/w Dr. Quiroga tomorrow R, [facility] angio, EP ablation -Cardio: Dr. Guerra #Persistent afib -c/w lovenox, coumadin bridge -f/u INR -pt will discuss NOACs with cardio -c/w amio, coreg #Apnea -seen on tele -may need sleep study outpt #LV failure s/p ICD -c/w entreto, lasix, aldactone #Chronic knee pain -c/w oxycodone #Smoking cessation -c/w nicotine patch #HTN- controlled -c/w coreg #F/E/N no IVF at this time continue to follow lytes diabetic diet #PPX lovenox-coumadin bridge #Dispo monitoring on tele await cardio input concerning R, [facility] angio, EP ablation will need sleep study outpt Visit type - Emergency Visit Emergency Visit: No - New Patient This patient is new to me today: Yes Date on this admission: 12/08/18 - Critical Care Critical Care patient: No
[2018-12-08] MEDS: WARFARIN NA 2 MG TABLET (UD) PO SCH (17:16)
[2018-12-08] MEDS: ATORVASTATIN CA 40 MG TABLET (FP) PO SCH (21:09)
[2018-12-08] MEDS: ZOLPIDEM TARTRATE 5 MG TABLET PO PRN (21:59)
--- NOTE | 2018-12-08 23:52 | EKG ---
Test Reason : Blood Pressure : / mmHG Vent. Rate : 153 BPM Atrial Rate : 102 BPM P-R Int : 000 ms QRS Dur : 154 ms QT Int : 376 ms P-R-T Axes : 000 107 -73 degrees QTc Int : 600 ms WIDE QRS TACHYCARDIA RIGHTWARD AXIS LEFT BUNDLE BRANCH BLOCK ABNORMAL ECG WHEN COMPARED WITH ECG OF 26-MAR-2013 13:26, WIDE QRS TACHYCARDIA HAS REPLACED ATRIAL FIBRILLATION VENT. RATE HAS INCREASED BY 82 BPM Confirmed by ZEKE KURTZ MD ([id number]) on 12/08/2018 11:52:31 PM Referred By: Confirmed By:ZEKE KURTZ MD
[2018-12-09] MEDS: INSULIN SLIDING SCALE (NOVOLOG) 1 VIAL SQ SCH ×3 (06:49→17:21)
[2018-12-09 06:54] LABS: ANION GAP 2 MMOL/L (8-16); BLOOD UREA NITROGEN 16 mg/dL (7-18); CALCIUM 8.6 mg/dL (8.5-10.1); CHLORIDE 107 mmol/L (98-107); CO2 29 mmol/L (21-32); CREATININE 0.9 mg/dL (0.55-1.3); GLUCOSE,RANDOM 116 mg/dL (74-106); MAGNESIUM 1.8 mg/dL (1.8-2.4); PHOSPHOROUS 2.5 mg/dL (2.5-4.9); POTASSIUM 4.2 mmol/L (3.5-5.1); SODIUM 139 mmol/L (136-145)
[2018-12-09] MEDS: oxyCODONE HCL 5 MG TABLET PO PRN ×2 (08:14→20:09)
[2018-12-09] MEDS: ACETAMINOPHEN 325 MG TABLET (FP) PO PRN ×2 (08:14→20:09)
[2018-12-09] MEDS: AMIODARONE HCL 200 MG TABLET (FP) PO SCH (09:34)
[2018-12-09] MEDS: NICOTINE 21 MG/24 HOURS TOPICAL PATCH TD SCH (09:34)
[2018-12-09] MEDS: SPIRONOLACTONE 25 MG TABLET (FP) PO SCH (09:35)
[2018-12-09] MEDS: CARVEDILOL 25 MG TABLET (FP) PO SCH ×2 (09:37→22:06)
[2018-12-09] MEDS: oxyCODONE HCL 20 MG SUSTAINED ACTING TABLET PO SCH ×2 (09:38→22:06)
--- NOTE | 2018-12-09 10:20 | PN ---
Progress Note, Physician History of Present Illness: No further recurrence in sustained ventricular arrhythmia after medication uptitration. - Current Medication List Current Medications: Active Medications Acetaminophen (Tylenol -) 650 mg PO Q4H PRN PRN Reason: PAIN 7-10 Last Admin: 12/09/18 08:14 Dose: 650 mg Amiodarone HCl (Cordarone -) 400 mg PO DAILY [facility] Last Admin: 12/09/18 09:34 Dose: 400 mg Atorvastatin Calcium (Lipitor -) 40 mg PO HS [facility] Last Admin: 12/08/18 21:09 Dose: 40 mg Carvedilol (Coreg -) 25 mg PO BID [facility] Last Admin: 12/09/18 09:37 Dose: 25 mg Enoxaparin Sodium (Lovenox -) 80 mg SQ BID [facility] Last Admin: 12/08/18 21:10 Dose: 80 mg Furosemide (Lasix -) 40 mg PO DAILY PRN PRN Reason: edema Last Admin: 12/09/18 09:38 Dose: 40 mg Insulin Aspart (Novolog Vial Sliding Scale -) 1 vial SQ TIDAC [facility]; Protocol Last Admin: 12/09/18 06:49 Dose: Not Given Nicotine (Nicoderm Patch -) 21 mg TD DAILY [facility] Last Admin: 12/09/18 09:34 Dose: 21 mg Oxycodone HCl (Oxycontin -) 20 mg PO BID [facility] Last Admin: 12/09/18 09:38 Dose: 20 mg Oxycodone HCl (Roxicodone -) 10 mg PO Q12H PRN PRN Reason: PAIN 7-10 Last Admin: 12/09/18 08:14 Dose: 10 mg Sacubitril/Valsartan (Entresto 49 Mg-51 Mg Tablet) 1 tab PO BID [facility] Last Admin: 12/08/18 21:12 Dose: 1 tab Spironolactone (Aldactone -) 12.5 mg PO DAILY [facility] Last Admin: 12/09/18 09:35 Dose: 12.5 mg Warfarin Sodium (Coumadin -) 4 mg PO TuTh@1800 [facility] Warfarin Sodium (Coumadin -) 2 mg PO SuMoWeFrSa@1800 [facility] Last Admin: 12/08/18 17:16 Dose: 2 mg Zolpidem Tartrate (Ambien -) 10 mg PO HS PRN PRN Reason: INSOMNIA Last Admin: 12/08/18 21:59 Dose: 10 mg - Objective Vital Signs: Vital Signs Temperature 98 F 12/09/18 08:23 Pulse Rate 64 12/09/18 08:23 Respiratory Rate 20 12/09/18 09:30 Blood Pressure 130/80 12/09/18 08:23 O2 Sat by Pulse Oximetry (%) 98 12/09/18 09:30 Constitutional: Yes: No Distress, Calm, Thin Neck: Yes: Supple Cardiovascular: Yes: Regular Rate and Rhythm Respiratory: Yes: Regular, CTA Bilaterally Gastrointestinal: Yes: Normal Bowel Sounds, Soft Edema: No Labs: CBC, BMP 12/08/18 06:00 12/09/18 05:30 INR, PTT INR 1.39 (0.83-1.09) H 12/08/18 06:00 - ....Imaging EKG: Report Reviewed (Tele: v-paced, no further VT occurrence) Problem List - Problems (1) Ischemic cardiomyopathy Code(s): I25.5 - ISCHEMIC CARDIOMYOPATHY (2) Atrial fibrillation, persistent Code(s): I48.1 - PERSISTENT ATRIAL FIBRILLATION (3) Diabetes type 2, controlled Code(s): E11.9 - TYPE 2 DIABETES MELLITUS WITHOUT COMPLICATIONS Qualifiers: Diabetes mellitus computer terminal operator insulin use: without [place] use Diabetes mellitus complication status: with circulatory complication (4) Dyslipidemia (high LDL; low HDL) Code(s): E78.5 - HYPERLIPIDEMIA, UNSPECIFIED (5) HTN (hypertension), benign Code(s): I10 - ESSENTIAL (PRIMARY) HYPERTENSION (6) V-tach Code(s): I47.2 - VENTRICULAR TACHYCARDIA Assessment/Plan 1. Recurrent dizziness and near syncopal episodes related to recurrent sustained arrhythmia/ventricular tachycardia, post ATP therapy/evident on device interrogation on Amiodarone therapy for future EPS/RFA 2. Ischemic dilated cardiomyopathy with chronic class I-II NYHA classification LV failure post prophylactic ICD implant, compensated/euvolemic 3. Chest pain syndrome/CAD post CT/CABG with evidence of demand ishemic injury angina pectoris 4. Persistent atrial fibrillation [id number] score 4 on A/C Coumadin/Heparin with subtherapeutic INR 5. HTN 6. DM 7. Hypercholesterolemia 8. PAD 9. CKD 10. Tobacco abuse PLAN: 1. Continue Coreg at 25 mg twice daily , Lipitor 40 qd 2. Continue Entresto 49/51 bid with uptitration as tolerated 3. Continue Amiodarone 400 mg daily 4. Continue diuretics-Lasix/Aldactone 12.5 qd 5. Continue A/C with Coumadin but preferably consider DOAC's, Lovenox as a bridge 6. Additional evaluation including R&LHC coronary angiography and EP study with VT ablation, discussed with Dr. Barbosa, will arrange for transfer to [facility] EP service for further input.
[2018-12-09 12:08] LABS: INR 1.44 (0.83-1.09); PROTHROMBIN TIME (PATIENT) 17.1 SEC (9.7-13.0)
--- NOTE | 2018-12-09 13:54 | DS ---
Physical Exam: SUBJECTIVE: Patient seen and examined at bedside. no acute events overnight. Without complaint. OBJECTIVE: Vital Signs Period Temp Pulse Resp BP Sys/Duffy Pulse Ox Last 24 Hr 97.7 F-98.1 F 55-64 18-20 105-133/59-80 98-98 PHYSICAL EXAM GENERAL: The patient is pleasant. awake, alert, and fully oriented, in no acute distress. HEAD: Normal with no signs of trauma. EYES: PERRL, extraocular movements intact, sclera anicteric, conjunctiva clear. No ptosis. ENT: Ears normal, nares patent, oropharynx clear without exudates, moist mucous membranes. NECK: Trachea midline, full range of motion, supple. LUNGS: Breath sounds equal, clear to auscultation bilaterally, no wheezes, no crackles, no accessory muscle use. HEART: Regular rate and rhythm, S1, S2 without murmur, rub or gallop. ABDOMEN: Soft, nontender, nondistended, normoactive bowel sounds EXTREMITIES: 2+ pt pulses, warm, well-perfused, no edema. NEUROLOGICAL: Cranial nerves II through XII grossly intact. PSYCH: Normal mood, normal affect. SKIN: Warm, dry, normal turgor. LABS Laboratory Results - last 24 hr 12/08/18 12/09/18 12/09/18 16:54 05:30 05:48 PT with INR INR Sodium 139 Potassium 4.2 Chloride 107 Carbon Dioxide 29 Anion Gap 2 L BUN 16 Creatinine 0.9 Creat Clearance w eGFR 85.23 POC Glucometer 156 115 Random Glucose 116 H Calcium 8.6 Phosphorus 2.5 Magnesium 1.8 12/09/18 12/09/18 11:40 12:18 PT with INR 17.10 H INR 1.44 H Sodium Potassium Chloride Carbon Dioxide Anion Gap BUN Creatinine Creat Clearance w eGFR POC Glucometer 124 Random Glucose Calcium Phosphorus Magnesium HOSPITAL COURSE: Date of Admission:12/07/18 Date of Discharge: 12/09/18 63 y/o M with PMH CAD s/p CABG, VTACH s/p ICD, HTN, afib on eliquis, per pt CVA 2016?, who presented to the ED with palpitations. Admitted w/ Palpitations and recurrent dizziness and near syncopal episodes related to recurrent sustained arrhythmia/ventricular tachycardia, post ATP therapy/evident on device interrogation on Amiodarone therapy for future EPS/ RFA. cardio consulted Dr. Guerra. pt will need EP study/ablation and R&L cath. will be transferred to [facility] today, accepted by Dr Barbosa for further management. entresto started, amio increased 200 to 400. pt currently asymptomatic and w/o chest pain #Tropinemia- due to vtach. flat trend. no intervention at this time. cardio on board. pt had recent echo last week done by busser. no recent stress test #Persistent afib w/ Subtherapeutic INR -c/w lovenox-coumadin bridge -monitor INR -pt will discuss NOACs with cardio -c/w amio, coreg #Apnea -seen on tele, does not snore at night but seems to be excessively tired during the day -will need sleep study outpt. pt given pulm referral #LV failure s/p ICD -c/w entreto, lasix, aldactone #Chronic knee pain- will re-start chronic medications. oxy 20mg BID and percocet 10mg/650mg BID prn #Smoking cessation -c/w nicotine patch pt stable for transfer to [facility], accepted by Dr Barbosa for further management. will send when bed available Minutes to complete discharge: 38 Discharge Summary Reason For Visit: WIDE COMPLEX TACHYCARDIA Current Active Problems Atrial fibrillation, persistent (Acute) Diabetes type 2, controlled (Acute) Dyslipidemia (high LDL; low HDL) (Acute) HTN (hypertension), benign (Acute) Hypertension (Acute) Ischemic cardiomyopathy (Acute) Persistent atrial fibrillation with RVR (Acute) V-tach (Acute) Wide-complex tachycardia (Acute) Condition: Good - Instructions Diet, Activity, Other Instructions: you came in because you were having palpitations and were found to have a fast heart beat. you were seen by the busser. we increased your amiodorone to 400mg daily, gave you your home meds and monitored you on telemetry. your INR was low so we continued you on your warfarin with Lovenox until your INR is in therapeutic levels. Per the busser recommendation, You will be transferred to [facility] for a catheterization to evaluate the heart and a possible ablation therapy to treat the arrhythmia. Please discuss with your primary care physician or your busser about possibly starting a different blood thinner medication called a NOAC instead of warfarin. With a NOAC you wont have to worry about your INR being low. In addition you may have sleep apnea. Please follow up with your swabber or swabber Dr Barraza within 1 week We have started you on a new med for your Heart called salcubitirl/valsartan ( Entresto) 49-51mg daily. Please stop taking losartan while taking entresto. Please resume your home meds Please continue amiodorone 400mg daily Please continue taking nicotine patches to help you quit smoking Please follow up with your primary care physician within 1 week Please follow up with your busser or busser Dr. Harrington within 1 week Please follow up with your swabber or swabber Dr Barraza within 1 week If you experience any worsening palpations, chest pain, shortness of breath, leg swelling, please call 911 or go to the ER Referrals: Sahil Barraza MD [Staff Physician] - 1 Week Jonathan Harrington MD [Staff Physician] - 1 Week Disposition: TRANSFER ACUTE CARE/OTHER HOSP - Home Medications Comprehensive Discharge Medication List: Ambulatory Orders Atorvastatin Ca [Lipitor] 40 mg PO HS 09/21/12 Carvedilol [Coreg] 25 mg PO BID 01/01/13 Furosemide 40 mg PO DAILY PRN 12/07/18 Oxycodone HCl/Acetaminophen [Percocet 10-325 mg Tablet] 1 each PO BID 12/07/18 Spironolactone 12.5 mg PO DAILY 12/07/18 metFORMIN HCL [Metformin HCl] 500 mg PO BID 12/07/18 oxyCODONE SR [Oxycontin] 20 mg PO BID 12/07/18 Amiodarone HCl [Cordarone -] 400 mg PO DAILY tablet 12/09/18 Enoxaparin [Lovenox -] 80 mg SQ BID disp.syrin 12/09/18 Nicotine Patch [Nicoderm Patch -] 21 mg TD DAILY patch 12/09/18 Sacubitril/Valsartan [Entresto 49 mg-51 mg Tablet] 1 tab PO BID tablet Warfarin Na [Coumadin -] 2 mg PO SuMoWeFrSa@1800 tablet 12/09/18 Warfarin Na [Coumadin -] 4 mg PO TuTh@1800 #0 tablet 12/09/18 This patient is new to me today: Yes Date on this admission: 12/09/18 Emergency Visit: Yes ED Registration Date: 12/07/18 Care time: The patient presented to the Emergency Department on the above date and was hospitalized for further evaluation of their emergent condition. Critical Care patient: No - Discharge Referral Referred to [facility] No
[2018-12-09] MEDS: ENOXAPARIN NA (PORCINE) 80 MG/0.8 ML DISP.SYRIN SQ SCH ×2 (14:23→22:07)
--- NOTE | 2018-12-09 14:47 | PN ---
Teaching Attending Note Name of Resident: Adan French ATTENDING PHYSICIAN STATEMENT I saw and evaluated the patient. I reviewed the resident's note and discussed the case with the resident. I agree with the resident's findings and plan as documented. SUBJECTIVE:asymptomatic. denies Cp, SOB< fever, chills, palpitations, N/V/C/D OBJECTIVE: Last Vital Signs Temp Pulse Resp BP Pulse Ox 98 F 64 20 130/80 98 12/09/18 08:23 12/09/18 08:23 12/09/18 09:30 12/09/18 08:23 12/09/18 09:30 General NAD ASSESSMENT AND PLAN: 63yo M with PMH CAD s/p CABG, Vtac s/p ICD placement, HTN and Afib on eliquis presented to the ER with palpitations 1. VTach- multiple episodes on ICD that ATP were paced. will need EP study and R &L cath. plan to be transferred to [facility] today. cont current management. entresto started. cardiac monitoring. maintain electrolytes K >4.5 and Mg >2.5 2. Tropinemia- due to vtach. flat trend. no intervention at this time. cardio on board. pt had recent echo last week done by payroll machine operator. no recent stress test 3. Apnea- apnic episodes noted on monitor overnight. does not snore at night but seems to be excessively tired during the day. d/c with pulm referral as outpatient for polysomgraphy 4. continuous nicotine dependence- nicotine patch 5. Subtherapeutic INR- bridge lovenox-coumadin. pt to d/w cardio about NOAC options 6. leukocytosis- liekly reactive due to stress. no signs of infection. no indication for abx. resolved 7. Chronic knee pain- will re-start chronic medications. oxy 20mg BID and percocet 10mg/650mg BID prn 8. AFib- cont rate control. on coumadin 9. HTN- controlled 10. DVT ppx- full dose lovenox 11. transfer to [facility] accepted by Dr Barbosa for further management
[2018-12-09] MEDS: WARFARIN NA 2 MG TABLET (UD) PO SCH (18:07)
[2018-12-09] MEDS: SACUBITRIL/VALSARTAN 49 MG-51 MG TABLET PO SCH ×2 (18:07→22:08)
[2018-12-09] MEDS: ATORVASTATIN CA 40 MG TABLET (FP) PO SCH (22:06)
[2018-12-09] MEDS: ZOLPIDEM TARTRATE 5 MG TABLET PO PRN (22:06)
[2018-12-10] MEDS: INSULIN SLIDING SCALE (NOVOLOG) 1 VIAL SQ SCH (06:15)
[2018-12-10] MEDS ORDERED: PT OWN MED DRAWER 7, Y5N ONE (08:19)
[2018-12-10 08:30] VITALS: BP 115/74; PULSE 66; TEMP 98
[2018-12-10] MEDS: ACETAMINOPHEN 325 MG TABLET (FP) PO PRN (08:30)
[2018-12-10] MEDS: oxyCODONE HCL 5 MG TABLET PO PRN (08:31)
[2018-12-10] MEDS: NICOTINE 21 MG/24 HOURS TOPICAL PATCH TD SCH (10:18)
[2018-12-10] MEDS: ENOXAPARIN NA (PORCINE) 80 MG/0.8 ML DISP.SYRIN SQ SCH (10:19)
[2018-12-10] MEDS: CARVEDILOL 25 MG TABLET (FP) PO SCH (10:19)
[2018-12-10] MEDS: oxyCODONE HCL 20 MG SUSTAINED ACTING TABLET PO SCH (10:19)
[2018-12-10] MEDS: AMIODARONE HCL 200 MG TABLET (FP) PO SCH (10:20)
[2018-12-10] MEDS: SPIRONOLACTONE 25 MG TABLET (FP) PO SCH (10:20)
[2018-12-10] MEDS: SACUBITRIL/VALSARTAN 49 MG-51 MG TABLET PO SCH (10:22)
--- NOTE | 2018-12-10 10:51 | PN ---
Teaching Attending Note Name of Resident: Adan French ATTENDING PHYSICIAN STATEMENT I saw and evaluated the patient. I reviewed the resident's note and discussed the case with the resident. I agree with the resident's findings and plan as documented. SUBJECTIVE:asymptomatic. NPO for possible cath today at [facility]. denies CP, SOB, fever, chills, N/V/C/D OBJECTIVE: Last Vital Signs Temp Pulse Resp BP Pulse Ox 98 F 66 20 115/74 99 12/10/18 08:29 12/10/18 08:29 12/10/18 08:29 12/10/18 08:29 12/09/18 21:00 General NAD ASSESSMENT AND PLAN: 63yo M with PMH CAD s/p CABG, Vtac s/p ICD placement, HTN and Afib on eliquis presented to the ER with palpitations 1. VTach- multiple episodes on ICD that ATP were paced. will need EP study and R &L cath. plan to be transferred to [facility] today. cont current management. entresto started. cardiac monitoring. maintain electrolytes K >4.5 and Mg >2.5 2. Tropinemia- due to vtach. flat trend. no intervention at this time. cardio on board. pt had recent echo last week done by manager discovery. no recent stress test 3. Apnea- apnic episodes noted on monitor overnight. does not snore at night but seems to be excessively tired during the day. d/c with pulm referral as outpatient for polysomgraphy 4. continuous nicotine dependence- nicotine patch 5. Subtherapeutic INR- bridge lovenox-coumadin. pt to d/w cardio about NOAC options 6. leukocytosis- liekly reactive due to stress. no signs of infection. no indication for abx. resolved 7. Chronic knee pain- will re-start chronic medications. oxy 20mg BID and percocet 10mg/650mg BID prn 8. AFib- cont rate control. on coumadin 9. HTN- controlled 10. DVT ppx- full dose lovenox 11. transfer to [facility] accepted by Dr Barbosa for further management. awaiting bed at [facility]
[2018-12-10 11:01] LABS: ALBUMIN 3.6 g/dl (3.4-5.0); ALK PHOS 80 U/L (45-117); ANION GAP 5 MMOL/L (8-16); BILIRUBIN,TOTAL 0.3 mg/dL (0.2-1); BLOOD UREA NITROGEN 17 mg/dL (7-18); CALCIUM 8.7 mg/dL (8.5-10.1); CHLORIDE 109 mmol/L (98-107); CO2 26 mmol/L (21-32); CREATININE 0.8 mg/dL (0.55-1.3); GLUCOSE,RANDOM 112 mg/dL (74-106); POTASSIUM 4.1 mmol/L (3.5-5.1); SGOT/AST 18 U/L (15-37); SGPT/ALT 26 U/L (13-61); SODIUM 139 mmol/L (136-145); TOT PROT 7.2 g/dl (6.4-8.2)
--- NOTE | 2018-12-10 11:40 | PN ---
Progress Note, Physician Chief Complaint: Events noted Not in distress History of Present Illness: Patient was seen and examined. Awake and alert. Chart was reviewed Denies chest pain, SOB or palpitations - Current Medication List Current Medications: Active Medications Acetaminophen (Tylenol -) 650 mg PO Q4H PRN PRN Reason: PAIN 7-10 Last Admin: 12/10/18 08:30 Dose: 650 mg Amiodarone HCl (Cordarone -) 400 mg PO DAILY [facility] Last Admin: 12/10/18 10:20 Dose: 400 mg Atorvastatin Calcium (Lipitor -) 40 mg PO HS [facility] Last Admin: 12/09/18 22:06 Dose: 40 mg Carvedilol (Coreg -) 25 mg PO BID [facility] Last Admin: 12/10/18 10:19 Dose: 25 mg Enoxaparin Sodium (Lovenox -) 80 mg SQ BID [facility] Last Admin: 12/10/18 10:19 Dose: Not Given Furosemide (Lasix -) 40 mg PO DAILY PRN PRN Reason: edema Last Admin: 12/09/18 09:38 Dose: 40 mg Insulin Aspart (Novolog Vial Sliding Scale -) 1 vial SQ TIDAC [facility]; Protocol Last Admin: 12/10/18 06:15 Dose: Not Given Nicotine (Nicoderm Patch -) 21 mg TD DAILY [facility] Last Admin: 12/10/18 10:18 Dose: 21 mg Oxycodone HCl (Oxycontin -) 20 mg PO BID [facility] Last Admin: 12/10/18 10:19 Dose: 20 mg Oxycodone HCl (Roxicodone -) 10 mg PO Q12H PRN PRN Reason: PAIN 7-10 Last Admin: 12/10/18 08:31 Dose: 10 mg Sacubitril/Valsartan (Entresto 49 Mg-51 Mg Tablet) 1 tab PO BID [facility] Last Admin: 12/10/18 10:22 Dose: 1 tab Spironolactone (Aldactone -) 12.5 mg PO DAILY [facility] Last Admin: 12/10/18 10:20 Dose: 12.5 mg Warfarin Sodium (Coumadin -) 4 mg PO TuTh@1800 [facility] Warfarin Sodium (Coumadin -) 2 mg PO SuMoWeFrSa@1800 [facility] Last Admin: 12/09/18 18:07 Dose: 2 mg Zolpidem Tartrate (Ambien -) 10 mg PO HS PRN PRN Reason: INSOMNIA Last Admin: 12/09/18 22:06 Dose: 10 mg - Objective Vital Signs: Vital Signs Temperature 98 F 12/10/18 08:29 Pulse Rate 66 12/10/18 08:29 Respiratory Rate 20 12/10/18 08:29 Blood Pressure 115/74 12/10/18 08:29 O2 Sat by Pulse Oximetry (%) 99 12/09/18 21:00 Eyes: Yes: PERRL HENT: Yes: Atraumatic Neck: Yes: Supple Cardiovascular: Yes: Regular Rate and Rhythm, S1, S2 Respiratory: Yes: CTA Bilaterally Gastrointestinal: Yes: Normal Bowel Sounds, Soft. No: Tenderness Edema: No Additional Findings/Remarks: - Review of Systems Constitutional: denies: Chills, Fever Cardiovascular: denies Chest Pain, Shortness of Breath. denies: Palpitations Respiratory: denies Cough, SOB. denies: Hemoptysis, Orthopnea, PND, SOB on Exertion Gastrointestinal: denies: Abdominal Pain, Constipation, Diarrhea, Melena, Nausea , Rectal Bleeding Genitourinary: denies: Dysuria, Hematuria Neurological: denies: Dizziness, Headache, Seizure, Syncope Labs: CBC, BMP 12/08/18 06:00 12/10/18 10:30 INR, PTT INR 1.39 (0.83-1.09) H 12/10/18 10:30 Problem List - Problems (1) AICD (automatic cardioverter/defibrillator) present Code(s): Z95.810 - PRESENCE OF AUTOMATIC (IMPLANTABLE) CARDIAC DEFIBRILLATOR (2) Atrial fibrillation, persistent Code(s): I48.1 - PERSISTENT ATRIAL FIBRILLATION (3) Hypertension Code(s): I10 - ESSENTIAL (PRIMARY) HYPERTENSION Qualifiers: Hypertension type: unspecified Qualified Code(s): I10 - Essential (primary ) hypertension (4) V-tach Code(s): I47.2 - VENTRICULAR TACHYCARDIA (5) Wide-complex tachycardia Code(s): I47.2 - VENTRICULAR TACHYCARDIA (6) Diabetes type 2, controlled Code(s): E11.9 - TYPE 2 DIABETES MELLITUS WITHOUT COMPLICATIONS Qualifiers: Diabetes mellitus local intermodal truck driver insulin use: without group home use Diabetes mellitus complication status: with circulatory complication (7) Dyslipidemia (high LDL; low HDL) Code(s): E78.5 - HYPERLIPIDEMIA, UNSPECIFIED (8) HTN (hypertension), benign Code(s): I10 - ESSENTIAL (PRIMARY) HYPERTENSION (9) Ischemic cardiomyopathy Code(s): I25.5 - ISCHEMIC CARDIOMYOPATHY Assessment/Plan 1. Near syncopal episodes related to recurrent sustained arrhythmia/ventricular tachycardia, post ATP therapy/evident on device interrogation 2. Ischemic dilated cardiomyopathy with chronic class I-II NYHA classification LV failure post prophylactic ICD implant, compensated/euvolemic 3. Chest pain syndrome/CAD post TN/CABG with evidence of demand ishemic injury angina pectoris 4. Persistent atrial fibrillation [id number] score 4 on A/C (Coumadin/Heparin) 5. HTN 6. DM 7. Hypercholesterolemia 8. PAD 9. CKD PLAN: 1. Continue Coreg at 25 mg BID and Lipitor 40 mg QD 2. Continue Entresto 49/51 mg BID with uptitration as tolerated 3. Continue Amiodarone 400 mg QD 4. Continue Lasix 40 mg QD and Aldactone 12.5 mg QD 5. Continue A/C with Coumadin 6. [facility] coronary angiography and EP study with VT ablation planned and to be transferred to [facility] EP service Moise Marquez MD
[2018-12-10 11:41] LABS: HEMATOCRIT 42.3 % (35.4-49); HEMOGLOBIN 14.7 GM/dL (11.7-16.9); MCH 31.2 pg (25.7-33.7); MCHC 34.9 g/dl (32.0-35.9); MEAN CELL VOLUME 89.4 fl (80-96); MEAN PLT VOLUME 8.7 fl (7.5-11.1); PLATELET COUNT 170 K/MM3 (134-434); RBC 4.72 M/mm3 (4.00-5.60); WHITE BLOOD COUNT 9.4 K/mm3 (4.0-10.0)
--- NOTE | 2018-12-10 12:05 | PN ---
Progress Note (short form) - Note Progress Note: SUBJECTIVE: Patient seen and examined at bedside. no acute events overnight. Without complaint. received bed at [facility]. pt made NPO per recommendation from CANDIDA at [facility] so that can get cath right away upon arrival OBJECTIVE: PHYSICAL EXAM GENERAL: The patient is pleasant. awake, alert, and fully oriented, in no acute distress. HEAD: Normal with no signs of trauma. EYES: PERRL, extraocular movements intact, sclera anicteric, conjunctiva clear. No ptosis. ENT: Ears normal, nares patent, oropharynx clear without exudates, moist mucous membranes. NECK: Trachea midline, full range of motion, supple. LUNGS: Breath sounds equal, clear to auscultation bilaterally, no wheezes, no crackles, no accessory muscle use. HEART: Regular rate and rhythm, S1, S2 without murmur, rub or gallop. ABDOMEN: Soft, nontender, nondistended, normoactive bowel sounds EXTREMITIES: 2+ pt pulses, warm, well-perfused, no edema. NEUROLOGICAL: Cranial nerves II through XII grossly intact. PSYCH: Normal mood, normal affect. SKIN: Warm, dry, normal turgor. A/P 63 y/o M with PMH CAD s/p CABG, VTACH s/p ICD, HTN, afib on eliquis, per pt CVA 2017?, who presented to the ED with palpitations. Received bed at [facility]. pt made NPO per recommendation from CANDIDA at [facility] so that can get cath right away upon arrival
[2018-12-10 13:52] LABS: INR 1.06 (0.83-1.09); PROTHROMBIN TIME (PATIENT) 12.5 SEC (9.7-13.0)
[2018-12-10] MEDS ORDERED: WARFARIN NA 2 MG TABLET (UD) PO SCH (18:00)
== END 2018-12-10 11:39 | disposition short-term general hospital (02) | DRG 309 ==
LOC: JER 22:50 → JERBED 12-07 00:01 → J4W 12-07 03:14
PROVIDERS: ADMIT Internal Medicine; ATTEND Internal Medicine
DX: I47.2 Ventricular tachycardia (principal); I50.20 Unspecified systolic (congestive) heart failure; I13.0 Hypertensive heart and chronic kidney disease with heart failure and stage 1 through stage 4 chronic kidney disease, or unspecified chronic kidney disease; I25.5 Ischemic cardiomyopathy; I48.1 Persistent atrial fibrillation; E11.9 Type 2 diabetes mellitus without complications; G47.30 Sleep apnea, unspecified; D72.829 Elevated white blood cell count, unspecified; I25.119 Atherosclerotic heart disease of native coronary artery with unspecified angina pectoris; Z95.1 Presence of aortocoronary bypass graft; E78.5 Hyperlipidemia, unspecified; N18.9 Chronic kidney disease, unspecified; R07.89 Other chest pain
CPT/HCPCS: 36415; 71045-TC-FY; 80048; 80053; 82550; 82962; 83735; 83880; 84100; 84484; 85025; 85027; 85610; 85730; 86850; 86870; 86900; 86901; 86902; 90688; 93005; 93010; 99284-25; G0008

== ENCOUNTER 2021-09-16 14:45 | Inpatient (IN) | payer OTHER ==
[2021-09-16 14:57] VITALS: BMI 23.0
[2021-09-16] MEDS ORDERED: LACTATED RINGERS SOLUTION 1000 ML INFUS.BAG IV ONE (16:40)
[2021-09-16 17:21] LABS: BASO % 0.9 % (0-2.0); EOS % 0.6 % (0-4.5); HEMATOCRIT 35.7 % (35.4-49); HEMOGLOBIN 11.4 GM/dL (11.7-16.9); LYMPH % 18.6 % (8-40); MCH 29.6 pg (25.7-33.7); MCHC 32.1 g/dl (32.0-35.9); MEAN CELL VOLUME 92.4 fl (80-96); MEAN PLT VOLUME 8.6 fl (7.5-11.1); MONO % 8.4 % (3.8-10.2); NEUT % 71.5 % (42.8-82.8); PLATELET COUNT 402 10^3/uL (134-434); RBC 3.86 M/mm3 (4.00-5.60); RDW 16.2 % (11.9-15.9); WHITE BLOOD COUNT 7.8 K/mm3 (4.0-10.0)
[2021-09-16 17:39] LABS: CHLORIDE 115 mmol/L (98-107); SODIUM 144 mmol/L (136-145)
[2021-09-16 17:41] LABS: CALCIUM 8.3 mg/dL (8.5-10.1)
[2021-09-16 17:42] LABS: ALBUMIN 2.1 g/dl (3.4-5.0); ANION GAP 7 MMOL/L (8-16); BLOOD UREA NITROGEN 18.2 mg/dL (7-18); CO2 22 mmol/L (21-32); GLUCOSE,RANDOM 105 mg/dL (74-106)
[2021-09-16 17:44] LABS: MAGNESIUM 1.8 mg/dL (1.8-2.4)
[2021-09-16 17:46] LABS: BILIRUBIN,TOTAL 0.5 mg/dL (0.2-1); CREATININE 0.9 mg/dL (0.55-1.3); PHOSPHOROUS 2.7 mg/dL (2.5-4.9); SGOT/AST 44 U/L (15-37); SGPT/ALT 51 U/L (13-61); TOT PROT 7.6 g/dl (6.4-8.2)
[2021-09-16 17:48] LABS: ALK PHOS 85 U/L (45-117)
[2021-09-16] MEDS ORDERED: LOPERAMIDE HCL 2 MG CAPSULE PO ONE (18:19)
[2021-09-16] MEDS ORDERED: LOPERAMIDE HCL 2 MG CAPSULE ONE (18:39)
[2021-09-17] MEDS ORDERED: GABAPENTIN 100 MG CAPSULE ONE ×2 (00:13→08:48)
[2021-09-17] MEDS ORDERED: APIXABAN 5 MG TABLET ONE ×3 (00:13→21:33)
[2021-09-17] MEDS: GABAPENTIN 300 MG CAPSULE PO SCH ×4 (00:15→21:52)
[2021-09-17] MEDS: APIXABAN 5 MG TABLET PO SCH ×3 (00:15→21:52)
[2021-09-17] MEDS ORDERED: INSULIN SLIDING SCALE (NOVOLOG) 1 VIAL SQ SCH (07:00)
[2021-09-17 07:39] LABS: BASO % 1.1 % (0-2.0); EOS % 0.5 % (0-4.5); HEMATOCRIT 34.3 % (35.4-49); HEMOGLOBIN 11.4 GM/dL (11.7-16.9); LYMPH % 24.6 % (8-40); MCH 30.6 pg (25.7-33.7); MCHC 33.3 g/dl (32.0-35.9); MEAN CELL VOLUME 92.1 fl (80-96); MEAN PLT VOLUME 8.5 fl (7.5-11.1); MONO % 8.4 % (3.8-10.2); NEUT % 65.4 % (42.8-82.8); PLATELET COUNT 373 10^3/uL (134-434); RBC 3.72 M/mm3 (4.00-5.60); RDW 16.2 % (11.9-15.9); WHITE BLOOD COUNT 6.6 K/mm3 (4.0-10.0)
[2021-09-17 08:07] LABS: ALBUMIN 2.3 g/dl (3.4-5.0); BLOOD UREA NITROGEN 15.6 mg/dL (7-18); CALCIUM 8.3 mg/dL (8.5-10.1); MAGNESIUM 1.8 mg/dL (1.8-2.4)
[2021-09-17 08:10] LABS: CREATININE 0.9 mg/dL (0.55-1.3); PHOSPHOROUS 2.9 mg/dL (2.5-4.9)
[2021-09-17 08:11] LABS: BILIRUBIN,TOTAL 0.5 mg/dL (0.2-1)
[2021-09-17 08:12] LABS: TOT PROT 7.6 g/dl (6.4-8.2)
[2021-09-17 08:12] LABS: PH,URINE 5.5 (5.0-8.0); URINE APPEARANCE CLEAR; URINE BILIRUBIN NEGATIVE (NEGATIVE); URINE COLOR DK YELLOW; URINE GLUCOSE (UA) NEGATIVE (NEGATIVE); URINE KETONE TRACE (NEGATIVE); URINE LEUK ESTERASE NEGATIVE (NEGATIVE); URINE NITRITE NEGATIVE (NEGATIVE); URINE PROTEIN TRACE (NEGATIVE)
[2021-09-17] MEDS ORDERED: ACETAMINOPHEN 325 MG TABLET (FP) PO PRN (09:30)
[2021-09-17] MEDS: INSULIN SLIDING SCALE (NOVOLOG) 1 VIAL SQ SCH ×3 (11:39→21:58)
[2021-09-17] MEDS ORDERED: oxyCODONE HCL 5 MG TABLET ONE (11:44)
[2021-09-17] MEDS ORDERED: ACETAMINOPHEN 325 MG TABLET (FP) ONE (11:45)
[2021-09-17] MEDS: oxyCODONE HCL 5 MG TABLET PO PRN (11:48)
[2021-09-17] MEDS ORDERED: oxyCODONE HCL 10 MG SUSTAINED ACTING TABLET ONE (21:33)
[2021-09-17] MEDS: oxyCODONE HCL 10 MG SUSTAINED ACTING TABLET PO SCH (21:53)
[2021-09-17] MEDS: NICOTINE 21 MG/24 HOURS TOPICAL PATCH TD SCH (22:14)
[2021-09-18] MEDS: GABAPENTIN 300 MG CAPSULE PO SCH ×3 (06:37→22:42)
[2021-09-18] MEDS: INSULIN SLIDING SCALE (NOVOLOG) 1 VIAL SQ SCH ×4 (06:37→22:42)
[2021-09-18] MEDS ORDERED: APIXABAN 5 MG TABLET ONE ×2 (09:09→22:09)
[2021-09-18] MEDS ORDERED: oxyCODONE HCL 10 MG SUSTAINED ACTING TABLET ONE ×2 (09:09→22:09)
[2021-09-18] MEDS ORDERED: PT OWN MED DRAWER 7, Y5N ONE (09:10)
[2021-09-18] MEDS: APIXABAN 5 MG TABLET PO SCH ×2 (10:28→22:42)
[2021-09-18] MEDS: oxyCODONE HCL 10 MG SUSTAINED ACTING TABLET PO SCH ×2 (10:28→22:43)
[2021-09-18] MEDS: NICOTINE 21 MG/24 HOURS TOPICAL PATCH TD SCH ×2 (10:28→16:50)
[2021-09-18] MEDS ORDERED: GABAPENTIN 100 MG CAPSULE ONE (22:09)
[2021-09-19] MEDS ORDERED: GABAPENTIN 100 MG CAPSULE ONE ×2 (06:07→20:58)
[2021-09-19] MEDS: INSULIN SLIDING SCALE (NOVOLOG) 1 VIAL SQ SCH ×4 (06:57→22:25)
[2021-09-19] MEDS: GABAPENTIN 300 MG CAPSULE PO SCH ×3 (06:57→22:25)
[2021-09-19] MEDS ORDERED: APIXABAN 5 MG TABLET ONE ×2 (09:40→20:57)
[2021-09-19] MEDS: APIXABAN 5 MG TABLET PO SCH ×2 (09:46→22:25)
[2021-09-19] MEDS: NICOTINE 21 MG/24 HOURS TOPICAL PATCH TD SCH (09:47)
[2021-09-19] MEDS ORDERED: AZITHROMYCIN IVPB 500 MG/250 ML BAG IVPB SCH (14:45)
[2021-09-19] MEDS ORDERED: CEFTRIAXONE 1 GM in DEXTROSE 5%-WATER - 50 ML IVPB SCH (15:00)
[2021-09-19] MEDS ORDERED: CEFTRIAXONE 1 GM/50 ML BAG ONE (16:34)
[2021-09-19] MEDS ORDERED: AZITHROMYCIN IVPB 500 MG/250 ML BAG IVPB ONE (16:34)
[2021-09-19] MEDS ORDERED: oxyCODONE HCL 5 MG TABLET ONE ×2 (16:46→23:34)
[2021-09-19] MEDS: oxyCODONE HCL 5 MG TABLET PO PRN ×2 (16:50→23:45)
[2021-09-19] MEDS ORDERED: DOXYCYCLINE INJECTION 100 MG in DEXTROSE 5%-WATER 100 ML IVPB SCH (20:00)
[2021-09-19 20:38] VITALS: TEMP 97.8
[2021-09-19] MEDS ORDERED: ATORVASTATIN CA 40 MG TABLET (FP) ONE (20:58)
[2021-09-19] MEDS ORDERED: DOXYCYCLINE HYCLATE 100 MG VIAL ONE (20:58)
[2021-09-19] MEDS ORDERED: ATORVASTATIN CA 40 MG TABLET (FP) PO SCH (22:00)
[2021-09-20] MEDS ORDERED: ZINC OXIDE 20% TOPICAL OINTMENT 30 GM TUBE TP ONE (00:22)
[2021-09-20] MEDS: oxyCODONE HCL 10 MG SUSTAINED ACTING TABLET PO SCH ×2 (00:45→00:55)
[2021-09-20] MEDS ORDERED: oxyCODONE HCL 10 MG SUSTAINED ACTING TABLET ONE (00:47)
[2021-09-20] MEDS ORDERED: PT OWN MED DRAWER 7, Y5N ONE (01:07)
[2021-09-20 02:01] VITALS: BP 130/82; PULSE 78
[2021-09-20] MEDS ORDERED: SPIRONOLACTONE 25 MG TABLET PO SCH (10:00)
[2021-09-20] MEDS ORDERED: AMIODARONE HCL 200 MG TABLET PO SCH (10:00)
== END 2021-09-20 02:00 | disposition left against medical advice (07) | DRG 177 ==
LOC: JER 14:45 → JERBED 18:04
PROVIDERS: ADMIT Internal Medicine
DX: U07.1 COVID-19 (principal); J12.82 Pneumonia due to coronavirus disease 2019; I50.23 Acute on chronic systolic (congestive) heart failure; I42.0 Dilated cardiomyopathy; A08.39 Other viral enteritis; I50.1 Left ventricular failure, unspecified; I11.0 Hypertensive heart disease with heart failure; I48.91 Unspecified atrial fibrillation; E86.0 Dehydration; I25.10 Atherosclerotic heart disease of native coronary artery without angina pectoris; M54.9 Dorsalgia, unspecified; I73.9 Peripheral vascular disease, unspecified; R63.4 Abnormal weight loss; Z68.23 Body mass index [BMI] 23.0-23.9, adult; Z20.822 Contact with and (suspected) exposure to COVID-19; Z95.810 Presence of automatic (implantable) cardiac defibrillator; Z95.1 Presence of aortocoronary bypass graft
CPT/HCPCS: 36415; 71045-TC-FY; 80053; 80061; 81003; 82550; 82553; 82728; 82962; 83036; 83735; 83880; 84100; 84443; 84484; 85025; 85379; 86140; 87045; 87046; 87070; 87077; 87205; 87324; 87449; 87804; 87807; 93005; 93010; 99285-25; C9803; U0003; U0005